=== PATIENT | female | born 1960 | race Caucasian/White ===

== ENCOUNTER 2021-06-30 16:25 | Inpatient (IN) | payer OTHER ==
[~2021-06-30] VITALS: Ht 154.9 cm; Wt 57.2 kg
[2021-06-30] MEDS ORDERED: SYNTHROID50 MCG PO (16:43)
[2021-06-30] MEDS ORDERED: FOSAMAX70 MG PO (16:44)
[2021-06-30] MEDS ORDERED: LIPITOR20 MG PO (16:44)
== END 2021-07-09 13:40 | disposition home or self-care (01) | DRG 863 ==
LOC: ER 16:25 → MEDI 23:56
PROVIDERS: ADMIT Internal Medicine; ATTEND Internal Medicine
PROC: BW24ZZZ Computerized Tomography (CT Scan) of Chest and Abdomen (ICD-10-PCS; 2021-06-30)
PROC: 0H9U3ZZ Drainage of Left Breast, Percutaneous Approach (ICD-10-PCS; principal; 2021-07-06)
DX: T81.41XA Infection following a procedure, superficial incisional surgical site, initial encounter (principal); N61.1 Abscess of the breast and nipple; Z20.822 Contact with and (suspected) exposure to COVID-19